=== PATIENT | male | born 1965 | race Caucasian/White ===

== ENCOUNTER 2023-06-22 13:46 | Emergency (ER) | payer MEDICAID ==
[~2023-06-22] VITALS: Ht 165.1 cm; Wt 90.0 kg
[2023-06-22 14:04] VITALS: BP 108/64; PULSE 94; RESP 18; TEMP 98.5; O2SAT 94
== END 2023-06-22 18:24 | disposition left against medical advice (07) ==
LOC: ER 14:22
DX: M54.2 Cervicalgia (principal); Z53.21 Procedure and treatment not carried out due to patient leaving prior to being seen by health care provider
CPT/HCPCS: 99281